=== PATIENT | male | born 1970 | race Caucasian/White ===

== ENCOUNTER 2021-11-26 09:34 | Emergency (ER) | payer BC, SELFPAY ==
[2021-11-26 09:37] VITALS: BP 146/66; PULSE 114; RESP 18; TEMP 38.9; O2SAT 97
--- NOTE | 2021-11-26 09:53 | ED.GENADUL_ITS ---
Discharge Plan Disposition Patient Disposition: HOME Condition: Improving Discharge Details Clinical Impression: Diarrhea, Fever Primary Care Provider: Nora,Local ED Provider: Freya Leyva Home Meds and New Rx's Prescriptions: Continued levothyroxine [Synthroid] 137 mcg Tablet 137 mcg PO DAILY Discharge Instructions Instructions: Fever in Adults (ED), Acute Diarrhea (ED) Additional Instructions: Your COVID and influenza tests today are negative. Your blood tests are reassuring and show no evidence of acute concerning or significant findings. It is suspected that your symptoms are secondary to a viral gastrointestinal illness. These illnesses can be brief and self limiting but last anywhere between 24 hours or several days. Drink plenty of fluids and get plenty of rest. Call your primary care doctor's office today to schedule a follow-up appointment for reevaluation within the next week. Return immediately to the emergency department if you develop any worsening or new concerning symptoms. Discharge Data Discharge Physician: Freya Leyva Medical Decision Making 51-year-old male with a history of feeling feverish, nausea, watery diarrhea for the past 2 days. Temp 100.2 on arrival. Temp 102 p.o. on my exam. Patient appears nontoxic. His abdomen is soft and nontender. Lungs are clear bilaterally. Suspect GI viral illness, influenza AB or coronavirus. As his abdomen is nontender, do not think indication for abdominal imaging. We will place an IV, bolus IV fluids, screening lab, IV Toradol, IV Tylenol and reassess. Labs reviewed. Normal white blood cell count. Fluvid negative. Patient reassessed and he feels much better and would like to go home. Heart rate reassessed on my exam and now normalized with a rate of 80s. Abdomen reassessed and is soft and nontender. Discussed with patient that his symptoms most likely appear consistent with a GI viral illness that is usually self- limiting. Discussed that his presentation could be consistent still with influenza and COVID even though these tests were negative today. Advised to increase fluids and rest. Advised to follow up with the primary care doctor for re-evaluation. Usual and customary return precautions given prior to discharge. Discussed that if he develops significant abdominal pain, would recommend to return to the emergency department for reevaluation and consideration for imaging at that time. Medical Records Medical records reviewed: Yes I reviewed the patient's medical records. Lab Data Lab results reviewed: Yes I reviewed the patient's lab results. Labs: Laboratory Tests Range/Units 11/26/21 11/26/21 11/26/21 09:52 09:52 10:10 WBC (4.4-10.8) 10^3/uL 7.51 RBC (4.36-5.78) 10^6/uL 4.75 Hgb (13.5-17.5) g/dL 15.3 Hct (40.0-50.0) % 44.4 MCV (80-95) fL 94 MCH (27.0-33.0) pg 32.2 MCHC (32.0-36.0) % 34.5 RDW (11.8-14.1) % 11.1 L Plt Count (130-400) 10^3/uL 231 MPV (8.0-11.0) fL 9.2 Immature Gran % 0.1 Neutrophils % 80.6 Lymphocytes % 10.3 Monocytes % 8.5 Eosinophils % 0.1 Basophils % 0.4 Nucleated RBC % (0.0-0.3) % 0.0 Absolute Neutrophils (1.2-6.7) 10^3/uL 6.05 Absolute Lymphocytes (1.2-3.4) 10^3/uL 0.77 L Absolute Monocytes (0.1-0.8) 10^3/uL 0.64 Absolute Eosinophils (0.0-0.7) 10^3/uL 0.01 Absolute Basophils (0.0-0.2) 10^3/uL 0.03 Sodium Cancelled 136 Potassium Cancelled 3.7 Chloride Cancelled 103 Carbon Dioxide Cancelled 24.5 Anion Gap Cancelled 8.5 BUN Cancelled 11 Creatinine Cancelled 1.1 Est GFR (CKD-EPI 2020) Cancelled 82.29 Glucose Cancelled 111 H Calcium Cancelled 9.0 Total Bilirubin Cancelled 0.7 AST Cancelled 18 ALT Cancelled 37 Alkaline Phosphatase Cancelled 86 Total Protein Cancelled 7.6 Albumin Cancelled 3.5 Lipase Cancelled 55 TSH (0.36-3.74) uIU/mL 1.40 COVID-19 Source SARS-CoV-2 (PCR) (Negative) Influenza Type A (PCR) (Negative) Influenza Type B (PCR) (Negative) RSV (PCR) (Negative) Range/Units 11/26/21 10:35 WBC (4.4-10.8) 10^3/uL RBC (4.36-5.78) 10^6/uL Hgb (13.5-17.5) g/dL Hct (40.0-50.0) % MCV (80-95) fL MCH (27.0-33.0) pg MCHC (32.0-36.0) % RDW (11.8-14.1) % Plt Count (130-400) 10^3/uL MPV (8.0-11.0) fL Immature Gran % Neutrophils % Lymphocytes % Monocytes % Eosinophils % Basophils % Nucleated RBC % (0.0-0.3) % Absolute Neutrophils (1.2-6.7) 10^3/uL Absolute Lymphocytes (1.2-3.4) 10^3/uL Absolute Monocytes (0.1-0.8) 10^3/uL Absolute Eosinophils (0.0-0.7) 10^3/uL Absolute Basophils (0.0-0.2) 10^3/uL Sodium Potassium Chloride Carbon Dioxide Anion Gap BUN Creatinine Est GFR (CKD-EPI 2020) Glucose Calcium Total Bilirubin AST ALT Alkaline Phosphatase Total Protein Albumin Lipase TSH (0.36-3.74) uIU/mL COVID-19 Source Nasopharynx SARS-CoV-2 (PCR) (Negative) Negative Influenza Type A (PCR) (Negative) Negative Influenza Type B (PCR) (Negative) Negative RSV (PCR) (Negative) Negative HPI General Mode of arrival: ambulatory . Date/Time Provider Initiated Documentation: 11/26/21 09:36 . Limitations to Documentation: no limitations . Information obtained by: patient . HPI Narrative: Pt is a 51yo M who presents to the ED with a complaint of diarrhea for the past 2 days. Patient states he has had multiple episodes of watery brown diarrhea and has been unable to keep anything as every time he eats or drinks anything he has watery diarrhea. He states he took Pepto-Bismol this morning without relief. He admits to occasional nausea but denies any vomiting. He states he has felt feverish. He admits to occasional abdominal pain at the time of diarrhea but denies any abdominal pain at present. He denies any known sick contacts, recent antibiotics or recent travel. He denies any runny nose, sore throat, ear pain, coughing, chest pain, difficulty breathing or urinary symptoms. He has not taken any Tylenol or ibuprofen. He states he is vaccinated for COVID and denies any known exposure to coronavirus. Related Data Home Medications Medication Instructions Recorded Confirmed levothyroxine 137 mcg tablet 137 mcg PO DAILY 11/26/21 11/26/21 (Synthroid) Allergies Allergy/AdvReac Type Severity Reaction Status Date / Time No Known Allergies Allergy Unverified 11/26/21 09:44 General Stated Complaint: Nausea/Vomit/Diar CLARE: 3 Review of Systems All systems reviewed & are unremarkable except as noted in HPI and below Constitutional Constitutional: Reports as per HPI, Denies chills and Reports fever(s) Eyes Eyes: Denies blurry vision ENT Ears, Nose, Mouth, and Throat: Denies dizziness, Denies sore throat and Denies throat swelling Cardiovascular Cardiovascular: Denies chest pain and Denies dyspnea Respiratory Respiratory: Denies cough and Denies dyspnea Gastrointestinal Gastrointestinal: Denies abdominal pain, Reports diarrhea, Reports nausea and Denies vomiting Genitourinary Genitourinary: Denies hematuria and Denies dysuria Musculoskeletal Musculoskeletal: Denies back pain and Denies numbness Integumentary/Breasts Skin/Breast: Denies lesions and Denies rash Neurologic Neurologic: Denies dizziness, Denies localized weakness and Denies numbness Allergic/Immunologic Allergic/Immunologic: Denies throat swelling PFSH All Active Problems (Updated 11/26/21 @ 12:33 by Freya Leyva DO) Diarrhea (Acute) Fever (Acute) Medical History (Updated 11/26/21 @ 12:33 by Freya Leyva DO) Hypothyroidism Surgical History (Updated 11/26/21 @ 10:10 by Freya Leyva DO) History of ankle surgery Social History Smoking/Tobacco Use Status: Never Smoking risk assessment performed?: Yes Alcohol Intake: current Alcohol Intake frequency: a few times a month Alcohol type: beer Drug use: Never Substance use type: does not use Do you feel safe at home: Yes Do you feel safe in your relationship?: Yes Exam Const General: cooperative and no acute distress Orientation: alert, awake and oriented x3 HENMT Head: normal to inspection Face and sinus: normal facial exam Eyes General: appearance normal, both eyes and all related structures Pupils: PERRL EOM: EOM intact bilaterally Neck Neck: normal visual inspection and No submandibular swelling Lymphatic: no lymphadenopathy noted Chest Chest: normal inspection of the chest and no tenderness Resp Effort & Inspection: normal respiratory effort and able to speak in complete sentences Auscultation: clear to auscultation bilaterally Cardio Rate: tachycardic Rhythm: regular rhythm GI Inspection: normal to inspection Palpation: soft, not firm, not rigid and nontender Auscultation: hypoactive bowel sounds Male General Exam: Yes normal external exam Back/Spine/Pelvis Thoracic/Lumbar Spine: thoracic and lumbar spine normal to inspection Pelvis: no pain with anterior-posterior compression Skin General skin exam: no rashes or lesions noted Neuro General: patient alert, patient awake and patient oriented x3 Cognition: normal cognition Speech: speech normal Motor: muscle tone normal throughout Sensory Exam: no sensory deficits noted Extrem General: normal to inspection, full ROM, capillary refill normal, no calf tenderness bilaterally and no edema Psych Appearance: grossly normal Mental Status: mental status grossly normal Speech and Movement: speech and movement normal Affect: normal affect Course Vital Signs Vital signs: Vital Signs Temperature 100.2 F H 11/26/21 09:37 Pulse 114 H 11/26/21 09:37 Respiratory Rate 18 11/26/21 09:37 Blood Pressure 146/66 H 11/26/21 09:37 Pulse Oximetry 97 11/26/21 09:37 Temperature 100.2 F H 11/26/21 09:37 Temperature Source Oral 11/26/21 09:37 Pulse 114 H 11/26/21 09:37 Respiratory Rate 18 11/26/21 09:37 Respiratory Effort Non-Labored 11/26/21 09:41 Blood Pressure 146/66 H 11/26/21 09:37 Blood Pressure Position Sitting 11/26/21 09:37 Pulse Oximetry 97 11/26/21 09:37 Oxygen Delivery Method Room Air 11/26/21 09:37 Oxygen Flow Rate 0 11/26/21 09:37 Pain Level 3 11/26/21 09:37 PAWSS Have you Been Recently Intoxicated or Drunk Within the Last 30 days?: No Have you Ever Experienced Previous Episodes of Alcohol Withdrawal?: No Have you ever Experienced Withdrawal Seizures?: No Have you ever Experienced Delirium Tremens(DT)s?: No Have you ever undergone Alcohol Rehabilitation Treatment (i.e, inpt ot outpatient treatment programs)?: No Have you ever Experienced Blackouts?: No Have you ever Combined Alcohol with other Downers within the last 90 days?: No Have you ever Combined Alcohol with any other Substance of Abuse during the last 90 days?: No Positive Blood Alcohol level on Presentation? [PCS.BAL]: No Evidence of Increased Autonomic Activity (i.e. HR>120, tremor, sweating, agitation, nausea)?: No Result: 0
[2021-11-26 10:00] LABS: Abs Immature Grans 0.01 10^3/uL (0.0-0.06); Absolute Basophil Count 0.03 10^3/uL (0.0-0.2); Absolute Eosinophil Count 0.01 10^3/uL (0.0-0.7); Absolute Lymphocyte Count 0.77 10^3/uL (1.2-3.4); Absolute Monocyte Count 0.64 10^3/uL (0.1-0.8); Absolute Neutrophil Count 6.05 10^3/uL (1.2-6.7); Basophils % 0.4; Eosinophils % 0.1; HCT 44.4 % (40.0-50.0); HGB 15.3 g/dL (13.5-17.5); Immature Grans % 0.1; Lymphocytes % 10.3; MCH 32.2 pg (27.0-33.0); MCHC 34.5 % (32.0-36.0); MCV 94 fL (80-95); MPV 9.2 fL (8.0-11.0); Monocytes % 8.5; Neutrophils % 80.6; Platelet Count 231 10^3/uL (130-400); RBC 4.75 10^6/uL (4.36-5.78); RDW 11.1 % (11.8-14.1); RDW-SD 38.5 fL; WBC 7.51 10^3/uL (4.4-10.8)
[2021-11-26] MEDS: ACETAMINOPHEN 1,000 MG/100 ML BTL 400 MG IVPB (10:27)
[2021-11-26] MEDS: Ketorolac 30 MG/ML VIAL IVP (10:27)
[2021-11-26] MEDS: Normal Saline 1,000 ML 1000 ML IV (10:28)
[2021-11-26 10:50] LABS: ALT 37 U/L (16-63); AST 18 U/L (15-37); Albumin 3.5 g/dL (3.4-5.0); Alkaline Phosphatase 86 U/L (46-116); Anion Gap 8.5 mmol/L (3-11); BUN 11 mg/dL (7-18); Bilirubin, Total 0.7 mg/dL (0.2-1.0); CO2 24.5 mmol/L (21.0-32.0); CREATININE 1.1 mg/dL (0.70-1.30); Chloride 103 mmol/L (98-107); Estimated GFR 82.29 (mL/min/1.73m2); Glucose 111 mg/dL (74-106); Lipase 55 U/L (73-393); Potassium 3.7 mmol/L (3.5-5.1); Sodium 136 mmol/L (136-145); Total Protein 7.6 g/dL (6.4-8.2)
[2021-11-26 11:22] LABS: COVID-19 PCR Negative (Negative); Influenza A PCR Negative (Negative); Influenza B PCR Negative (Negative); RSV PCR Negative (Negative)
[2021-11-26 11:24] LABS: Source Nasopharynx
[2021-11-26 12:47] VITALS: BP 123/60; PULSE 78; RESP 18; TEMP 37.3; O2SAT 98
== END 2021-11-26 12:46 | disposition home or self-care (01) ==
PROVIDERS: Emergency Provider Physician Assistant
DX: R19.7 Diarrhea, unspecified (principal); R50.9 Fever, unspecified; R11.0 Nausea; Z20.822 Contact with and (suspected) exposure to COVID-19
CPT/HCPCS: 36415; 80053; 83690; 87637; 96365; 96375; 99284; 84443; 85025; J0131; J1885